=== PATIENT | female | born 1945 | race Asian ===

== ENCOUNTER 2018-12-14 10:21 | Day surgery (SDC) | payer OTHER | END 2018-12-14 12:40 | disposition home or self-care (01) | LOC: OR 10:21 | PROC: 3E0R33Z Introduction of Anti-inflammatory into Spinal Canal, Percutaneous Approach (ICD-10-PCS; principal; 2018-12-14) | PROC: B01BYZZ Fluoroscopy of Spinal Cord using Other Contrast (ICD-10-PCS; 2018-12-14) | DX: M51.16 Intervertebral disc disorders with radiculopathy, lumbar region (principal) | CPT/HCPCS: J1020 ==

== ENCOUNTER 2019-01-11 07:26 | Day surgery (SDC) | payer OTHER | END 2019-01-11 09:12 | disposition home or self-care (01) | LOC: OR 07:26 | PROC: 3E0R33Z Introduction of Anti-inflammatory into Spinal Canal, Percutaneous Approach (ICD-10-PCS; principal; 2019-01-11) | PROC: B01BYZZ Fluoroscopy of Spinal Cord using Other Contrast (ICD-10-PCS; 2019-01-11) | DX: M51.16 Intervertebral disc disorders with radiculopathy, lumbar region (principal); M96.1 Postlaminectomy syndrome, not elsewhere classified; M48.061 Spinal stenosis, lumbar region without neurogenic claudication | CPT/HCPCS: J1020 ==

== ENCOUNTER 2019-04-18 08:25 | Day surgery (SDC) | payer OTHER | END 2019-04-18 11:50 | disposition home or self-care (01) | LOC: OR 08:25 | PROC: 3E0R33Z Introduction of Anti-inflammatory into Spinal Canal, Percutaneous Approach (ICD-10-PCS; principal; 2019-04-18) | PROC: B01BYZZ Fluoroscopy of Spinal Cord using Other Contrast (ICD-10-PCS; 2019-04-18) | DX: M51.16 Intervertebral disc disorders with radiculopathy, lumbar region (principal) | CPT/HCPCS: J1020 ==